=== PATIENT | male | born 1950 | race Asian ===

== ENCOUNTER 2017-12-12 11:32 | Day surgery (SDC) | payer BC ==
[2017-11-28 13:06] VITALS: BMI 26.4
[2017-12-12] MEDS ORDERED: LIDOCAINE HCL 2% (20ML MULTI-DOSE VIAL) NR ONE (12:37)
[2017-12-12] MEDS ORDERED: BUPIVACAINE HCL/PF 0.5% (5MG/ML) 10 ML VIAL ONE (12:37)
[2017-12-12] MEDS ORDERED: DEXAMETHASONE SOD PHOSPHATE/PF 10 MG/ML SDV ONE (12:37)
[2017-12-12] MEDS ORDERED: DEXAMETHASONE SOD PHOSPHATE 4 MG/1 ML VIAL ONE (12:37)
[2017-12-12] MEDS ORDERED: MIDAZOLAM HCL 2 MG/2 ML SINGLE DOSE VIAL ONE (12:44)
[2017-12-12] MEDS ORDERED: PROPOFOL 20 ML ONE ×2 (12:44)
[2017-12-12] MEDS ORDERED: ceFAZolin SODIUM 1 GM VIAL ONE (13:13)
[2017-12-12] MEDS ORDERED: LIDOCAINE HCL 2% (50ML VIAL) INF ONE (13:36)
[2017-12-12] MEDS ORDERED: ONDANSETRON 4 MG/2 ML VIAL ONE (13:51)
[2017-12-12] MEDS ORDERED: KETOROLAC TROMETHAMINE 30 MG/1 ML VIAL ONE (13:51)
[2017-12-12 14:53] VITALS: TEMP 97.6
[2017-12-12 14:56] VITALS: BP 131/77; PULSE 76
--- NOTE | 2017-12-13 10:13 | OP ---
DATE OF OPERATION: 12/12/2017 SURGEON: Milvia eMndoza DPM PREOPERATIVE DIAGNOSIS: Ganglionic cyst, dorsal right foot. POSTOPERATIVE DIAGNOSIS: Ganglionic cyst, dorsal right foot. PROCEDURE: Excision of ganglionic cyst, right foot. ANESTHESIA: Local with MAC (6.0 mL lidocaine 2% plain used). HEMOSTASIS: Attained using a pneumatic ankle tourniquet at the right ankle at 250 mmHg. ESTIMATED BLOOD LOSS: Approximately 1.0 mL total. DESCRIPTION OF PROCEDURE: With the patients vital signs noted to be stable, he was brought to the OR and placed on the OR table in the supine position. After general sedation was attained, local anesthesia was administered and attained at the right foot. At this point, an orthopedic sterile prepping and draping of the right foot was performed. Now, the tourniquet was inflated to 250 mmHg. At this point, a lazy S or curvilinear incision 2.5 cm in length was made over the mid tarsal joint of the right foot approximately 1.0 cm lateral to the extensor hallucis longus tendon. The incision was carefully deepened, and the skin the superficial subcutaneous tissues were undermined via sharp and blunt dissection. At this point, much gelatinous fluid exuded from the incision site. Now, the fibrous cyst, which was white in color, was clearly visualized and was sharply dissected including any deeper attachments o tentacles. The area was flushed with sterile saline, and now the the subcutaneous tissue was closed using simple sutures of 3-0 Vicryl, and the skin was closed using a subcuticular stitch of 4-0 Prolene. At this point, postoperative injectable was used, and a sterile compressive dressing was placed. At this point, the tourniquet was deflated, and normal capillary filling time was instantaneously observed on all digits of the right foot. Patient tolerated the procedure well. The wound expectancy is clean, and the prognosis is good. MILVAI MENDOZA DPM [id number]
--- NOTE | 2017-12-14 15:16 | PATH ---
Surgical Pathology Report Patient Name: DAYANA MONTANO [facility] [place]. Rec. #: [id number] /Age/Gender: 1950 (Age: 67) / M Account: [id number] Location: [facility] AMBULATORY Taken: 12/12/2017 Received: 12/12/2017 Reported: 12/14/2017 Physicians: Mark Brantley Specimen(s) Received RIGHT FOOT GANGLION CYST Clinical History Ganglion cyst right foot Final Diagnosis FOOT, RIGHT, GANGLION CYST, EXCISION: BENIGN FIBROCONNECTIVE TISSUE WITH FOCAL MYXOID CHANGE CONSISTENT WITH GANGLION CYST AND FIBROADIPOSE TISSUE. Electronically Signed Mari Alvarado M.D. Gross Description Received in formalin labeled "right foot ganglion cyst," is a 2.4 x 1.7 x 0.3 cm aggregate of mock fragments of soft tissue, consistent with a disrupted cyst. The specimen is entirely submitted in one cassette. 12/13/201712/13/2017
== END 2017-12-12 15:00 | disposition home or self-care (01) ==
LOC: FASU 11:32
PROVIDERS: ATTEND Podiatrist
PROC: 0YBM0ZZ Excision of Right Foot, Open Approach (ICD-10-PCS; principal; 2017-12-12 13:30)
DX: M67.471 Ganglion, right ankle and foot (principal)
CPT/HCPCS: 82962; 88304-TC